=== PATIENT | female | born 1980 | race Caucasian/White ===

== ENCOUNTER 2016-09-11 02:09 | Emergency (ER) | payer MEDICAID ==
[~2016-09-11] VITALS: Ht 152.4 cm; Wt 96.0 kg
[~2016-09-11 02:09] MED LIST: BEN50 PO; CEPH-443 PO; CIPR500T4 PO; CYCL-319 PO; HC1C30 TOP; HYDR-3498 PO; IBUP-1542 PO; METH500T PO; NAPR-688 PO; PHEN-538 PO; TRAM50TA2 PO
[2016-09-11 02:20] VITALS: Ht 152.4 cm; Wt 96.0 kg
[2016-09-11] MEDS ORDERED: CEPH-443 PO (03:05)
[2016-09-11] MEDS ORDERED: HYDR-3011 PO (03:05)
[2016-09-11] MEDS ORDERED: SULF1TAB31 PO (03:05)
[2016-09-11] MEDS ORDERED: TRIA15CR55 TOP (03:05)
--- NOTE | 2016-09-11 03:12 | ERD ---
ER Documentation Chief Complaint Date/Time DATE: 09/11/16 TIME: 03:09 Chief Complaint R leg rash and pain and swelling to R enriquez for 3 days HPI 36-year-old female presents to emergency department for complaints of right lower leg rash, patient has been having the rash or the last 3 days, has been itching, she is scratching on it, and now it became more red and swollen, no swelling on affected area. Patient is complaining of pain sharp in succession scale, is worse with touching the area. Patient denies any discharge coming from the area. Patient denies any fever or chills. Patient denies any numbness or tingling. Patient denies any trauma on affected area. ROS All systems reviewed and are negative except as per history of present illness. Medications Home Meds Active Scripts Hydroxyzine Hcl* (Hydroxyzine Hcl*) 25 Mg Tablet, 25 MG PO Q8H Y for ITCHING, # 30 TAB Prov:CAROLINE RODRIGUEZ NP 09/11/16 Sulfamethoxazole/Trimethoprim* (Bactrim Ds* Tablet) 1 Each Tablet, 1 TAB PO BID , #20 TAB Prov:CAROILNE RODRIGUEZ NP 09/11/16 Cephalexin* (Keflex*) 500 Mg Capsule, 500 MG PO QID for 10 Days, CAP Prov:CAROLINE RODRIGUEZ NP 09/11/16 Triamcinolone Acetonide (Triamcinolone Acetonide) 0.1% - 15 Gm Cream.gm., 1 APPLIC TOP BID, #1 TUB Prov:CAROLINE RODRIGUEZ NP 09/11/16 Methocarbamol* (Robaxin*) 500 Mg Tab, 500 MG PO Q8, #14 TAB Prov:GREENMARIA EUGENIACHITO DO 02/06/16 Naproxen* (Naproxen*) 500 Mg Tablet, 500 MG PO BID, #20 TAB Prov:GREEN,CHTIO DO 02/06/16 Cephalexin* (Keflex*) 500 Mg Capsule, 500 MG PO QID for 3 Days, CAP Prov:GREENCHITO DO 02/06/16 Phenazopyridine Hcl* (Pyridium*) 200 Mg Tab, 200 MG PO TID Y for URINARY PAIN, # 6 TAB Prov:CHRISTOPHER RUIZ PA-C 10/07/15 Cephalexin* (Keflex*) 500 Mg Capsule, 500 MG PO BID for 5 Days, CAP Prov:CHRISTOPHER RUIZ PA-C 10/07/15 Ibuprofen* (Motrin*) 600 Mg Tab, 600 MG PO Q6, #14 TAB Prov:JOHN HUERTAS MD 05/24/15 Cyclobenzaprine Hcl* (Cyclobenzaprine Hcl*) 10 Mg Tablet, 10 MG PO TID, #20 TAB Prov:JOHN HUERTAS MD 05/24/15 Tramadol HCl (Tramadol HCl) 50 Mg Tablet, 50 MG PO Q4 Y for PAIN, #20 TAB Prov:JOHN HUERTAS MD 05/24/15 Hydrocodone Bit-Acetaminophen* ([place]*) 5-325 Mg Tab, 1 TAB PO Q4H Y for PA, # 20 TAB Prov:CAROLINE RODRIGUEZ NP 12/01/14 Phenazopyridine Hcl* (Pyridium*) 200 Mg Tab, 200 MG PO TID Y for DYSURIA, #6 TAB Prov:CAROLINE RODRIGUEZ NP 12/01/14 Ciprofloxacin Hcl* (Ciprofloxacin Hcl*) 500 Mg Tablet, 500 MG PO BID for 7 Days , TAB Prov:CAROLINE RODRIGUEZ NP 12/01/14 Diphenhydramine Hcl* (Benadryl*) 50 Mg Cap, 50 MG PO Q6 Y for ITCHING, #20 CAP Prov:CHO,SIENA 08/05/14 Hydrocortisone* Topical (Hydrocortisone* Topical) 1%-28.35 Gm Cream..g., 1 APPLIC TOP Q6 Y for ITCHING, #1 TUB Prov:CHO,SIENA 08/05/14 Ibuprofen* (Ibuprofen*) 600 Mg Tablet, 600 MG PO Q6, #15 TAB Prov:CHO,SIENA 15 Allergies Allergies: Coded Allergies: No Known Allergy (Verified , NONE, 03/03/14) PMhx/Soc History of Surgery: Yes ( X 3) Anesthesia Reaction: No Hx Neurological Disorder: No Hx Respiratory Disorders: No Hx Cardiac Disorders: Yes (HTN) Hx Psychiatric Problems: No Hx Miscellaneous Medical Probl: No Hx Alcohol Use: No Hx Substance Use: No Hx Tobacco Use: No Smoking Status: Never smoker FmHx Family History: No coronary disease, No diabetes, No other Physical Exam Vitals Vital Signs Date Time Temp Pulse Resp B/P Pulse Ox O2 Delivery O2 Flow Rate FiO2 09/11/16 02:20 99.1 65 18 132/75 95 Physical Exam GENERAL: The patient is well developed and appropriate for usual state of health, in no apparent distress. CHEST: Clear to auscultation bilaterally. There are no rales, wheezes or rhonchi. HEART: Regular rate and rhythm. No murmurs, clicks, rubs or gallops. No S3 or S4. ABDOMEN: Soft, nontender and nondistended. Good bowel sounds. No rebound or guarding. No gross peritonitis. No gross organomegaly or masses. No Lemon sign or McBurney point tenderness. BACK: No midline or flank tenderness. EXTREMITIES: Negative Romberg sign. Negative pronator drift. Equal pulses bilaterally. There is no peripheral clubbing, cyanosis or edema. No focal swelling or erythema. Full range of motion. Grossly neurovascularly intact. NEURO: Alert and oriented. Cranial nerves 2-12 intact. Motor strength in all 4 extremities with 5/5 strength. Sensation grossly intact. Normal speech and gait. SKIN: Noted lichenification plaques and excoriation in the right lower leg, with erythema surrounding the area with mild tenderness on palpation and swelling noted. Mild induration noted. There is no apparent ecchymosis or petechia. The skin is warm and dry. HEMATOLOGIC AND LYMPHATIC: There is no evidence of excessive bruising or lymphedema. No gross cervical, axillary, or inguinal lymphadenopathy. Procedures/MDM Medical decision making: Patient's symptoms likely consistent with a right lower leg dermatitis was likely with secondary infection, likely early cellulitis. No symptoms of any neurovascular compromise, no necrosis noted. No symptoms of any anaphylactic shock, no symptoms of sepsis. Patient appears well and is hemodynamically stable. Radiology exams and laboratory testing are indicated at this time. Patient was given for triamcinolone 1% cream, hydroxyzine, Bactrim and Keflex, is advised to elevated affected area, take medications as prescribed. Patient was advised to follow-up with primary care doctor in 2 days for reevaluation of symptoms. Patient was advised to return to emergency department for an worsening symptoms. Departure Diagnosis: Primary Impression: Cellulitis Site of cellulitis: extremity Site of cellulitis of extremity: lower extremity Laterality: right Qualified Code: L03.115 - Cellulitis of right lower extremity Additional Impression: Dermatitis Condition: Stable Patient Instructions: Cellulitis, Atopic Dermatitis (Eczema) CAROLINE RODRIGUEZ NP Sep 11, 2016 03:12
== END 2016-09-11 03:15 | disposition home or self-care (01) ==
LOC: FTE 02:09
DX: L03.115 Cellulitis of right lower limb (principal); L30.9 Dermatitis, unspecified; I10 Essential (primary) hypertension
CPT/HCPCS: 99284

== ENCOUNTER 2017-09-29 22:14 | Emergency (ER) | END 2017-09-30 03:58 | disposition home or self-care (01) ==